=== PATIENT | female | born 1995 | race African-American/Black ===

== ENCOUNTER 2020-08-13 00:17 | Inpatient (IN) | payer MEDICAID ==
[~2020-08-13] VITALS: Ht 170.2 cm; Wt 75.7 kg
[2020-08-13] MEDS ORDERED: WITCH HAZEL-GLYCERIN PAD TOP PRN (02:45)
[2020-08-13] MEDS ORDERED: LIDOCAINE 2%HCL (LOCAL ANESTH.) INJ 20ML MDV IJ ONE (02:45)
[2020-08-13] MEDS ORDERED: PHISODERM TOP SOLN 240ML BTL TOP PRN (02:45)
[2020-08-13] MEDS ORDERED: DERMOPLAST 60ML BOTTLE TOP PRN (02:45)
[2020-08-13] MEDS ORDERED: PENICILLIN G POT 5MIL/D5 50ML 50 ML IV ONE (02:59)
[2020-08-13] MEDS ORDERED: ceFAZolin 1GM/50ML 50 ML IV ONE (03:11)
[2020-08-13] MEDS ORDERED: LACT. RINGERS/OXYTOCIN 20UNITS 1,000 ML IV ONE (03:30)
[2020-08-13] MEDS ORDERED: TERBUTALINE SULFATE 1 MG/ML 1ML VIAL SC ONE (03:30)
[2020-08-13] MEDS ORDERED: LACT. RINGERS/OXYTOCIN 20UNITS 1,000 ML IV SCH (03:30)
[2020-08-13 03:31] LABS: Basophils # (auto) 0 10 ^3/uL (0-0.2); Basophils % (auto) 0.2 % (0.0-2.0); Eosinophils # (auto) 0.1 10 ^3/uL (0-0.8); Eosinophils % (auto) 0.6 % (0.0-7.0); Hematocrit 36.2 % (36.0-46.0); Hemoglobin 12.3 g/dL (12.2-16.2); Lymphocytes # (auto) 2.3 10 ^3/uL (0.4-5.4); Lymphocytes % (auto) 28.4 % (10.0-50.0); Mean Corpuscular Hgb Conc. 33.9 g/dL (32.0-36.0); Mean Corpuscular Volume 91.4 fL (80.0-100.0); Monocytes # (auto) 0.7 10 ^3/uL (0-1.3); Monocytes % (auto) 9.1 % (0.0-12.0); Neutrophils % (auto) 61.7 % (37.0-80.0); Nucleated Red Blood Cells % 0.1 %; Platelet Count (auto) 186 10^3/uL (140-450); Red Blood Cells 3.96 10^6/uL (4.0-5.20); Red Cell Distribution Width 14.6 % (11.8-14.3); White Blood Cell 8.1 10^3/uL (4.4-10.8)
[2020-08-13 03:31] LABS: Urine Bacteria FEW /hpf (None Seen); Urine Blood Negative /uL (Negative); Urine Mucus FEW (None Seen); Urine Specific Gravity 1.011 (1.001-1.035); Urine WBC 3 /hpf (0 - 5)
[2020-08-13] MEDS: LACTATED RINGER'S 1,000 ML IV SCH ×2 (03:33→06:42)
[2020-08-13 03:35] LABS: INR 0.89 (0.9-1.15); Partial Thromboplastin Time 29.7 sec (23.0-31.2)
[2020-08-13 03:36] LABS: Albumin 2.8 g/dL (3.4-5.0); Calcium 8.4 mg/dL (8.5-10.1); Potassium 3.9 mmol/L (3.5-5.1)
[2020-08-13 03:40] LABS: BUN/Creatinine Ratio 14.9; Bilirubin, Total 0.4 mg/dL (0.2-1.0); Total Protein 7.4 g/dL (6.4-8.2)
[2020-08-13] MEDS ORDERED: LIDOCAINE HCL 2 %PF INJ 10ML AMP IJ ONE (05:00)
[2020-08-13] MEDS ORDERED: fentaNYL CITRATE 100 MCG/2 ML VL IV ONE (05:00)
[2020-08-13] MEDS ORDERED: ePHEDrine SULFATE 50 MG/ML AMP IV ONE (05:00)
[2020-08-13] MEDS ORDERED: ROPIVACAINE HCL 200 ML EPI SCH (05:00)
[2020-08-13] MEDS ORDERED: NALOXONE HCL 0.4 MG/ML VIAL IV ONE (05:00)
[2020-08-13] MEDS ORDERED: LACTATED RINGER'S 500 ML IV ONE (05:00)
[2020-08-13] MEDS ORDERED: PREN-96 PO (06:20)
[2020-08-13] MEDS ORDERED: METHYLERGONOVINE MALEATE 0.2 MG/ML AMP IM PRN (10:30)
[2020-08-13] MEDS ORDERED: ACETAMINOPHEN 325 MG TAB PO PRN (12:30)
[2020-08-13 15:30] VITALS: BP 129/83
[2020-08-13] MEDS: IBUPROFEN 600 MG TAB PO PRN (17:08)
[2020-08-13 19:30] VITALS: BP 118/69
[2020-08-13 23:00] VITALS: BP 129/83
[2020-08-14] MEDS: IBUPROFEN 600 MG TAB PO PRN ×2 (00:59→08:12)
[2020-08-14] MEDS ORDERED: TETANUS-DIPTH-ACEL PERTUSSIS 0.5ML SYR Tdap IM ONE (02:00)
[2020-08-14 03:30] VITALS: BP 120/68
[2020-08-14 06:45] VITALS: BP 115/72
[2020-08-14 11:15] VITALS: BP 117/68
[2020-08-15 10:18] LABS: RPR Non Reactive (Non Reactive)
== END 2020-08-14 14:48 | disposition home or self-care (01) | DRG 560 ==
LOC: LDRP 00:17 → OBSVTOIN 00:17 → LDRP 02:46
PROVIDERS: ADMIT Specialist; ATTEND Specialist
PROC: 10E0XZZ Delivery of Products of Conception, External Approach (ICD-10-PCS; principal; 2020-08-13)
PROC: 0W8NXZZ Division of Female Perineum, External Approach (ICD-10-PCS; 2020-08-13)
PROC: 0KQM0ZZ Repair Perineum Muscle, Open Approach (ICD-10-PCS; 2020-08-13)
PROC: 10907ZC Drainage of Amniotic Fluid, Therapeutic from Products of Conception, Via Natural or Artificial Opening (ICD-10-PCS; 2020-08-13)
PROC: 3E0R3BZ Introduction of Anesthetic Agent into Spinal Canal, Percutaneous Approach (ICD-10-PCS; 2020-08-13)
PROC: 3E0R33Z Introduction of Anti-inflammatory into Spinal Canal, Percutaneous Approach (ICD-10-PCS; 2020-08-13)
DX: O69.81X0 Labor and delivery complicated by cord around neck, without compression, not applicable or unspecified (principal); O70.1 Second degree perineal laceration during delivery; Z3A.39 39 weeks gestation of pregnancy; Z37.0 Single live birth; Z20.822 Contact with and (suspected) exposure to COVID-19
CPT/HCPCS: 36415; 59025; 59409; 62282; 80053; 81001; 81002; 85025; 85610; 85730; 86592; 86850; 86900; 86901; 87340; 87426; 90715; 96360; 96361; 96372; G0378; J0690; J2540; J2590